=== PATIENT | female | born 1985 | race Caucasian/White ===

== ENCOUNTER 2018-03-08 08:35 | Emergency (ER) | payer MEDICAID, OTHER ==
[2018-03-08 09:04] LABS: #Lymphocytes 1.2 thou/uL (1.20-3.40); #Monocytes 0.2 thou/uL (0.11-0.59); #Neutrophils 2.9 thou/uL (1.40-6.50); %Basophils 1.1 % (0.0-1.0); %Lymphocytes 27.3 % (21.0-51.0); %Monocytes 3.7 % (0.0-10.0); Hemoglobin 14.4 g/dL (12.0-16.0); Mean Corpuscular HGB CONC 34.5 g/dL (32.0-36.0); Mean Corpuscular Hemoglobin 32.1 pg (27.0-31.0); Mean Platelet Volume 7.5 fL (7.4-10.4); Platelet Count 219 thou/uL (130-400); RBC Distribution Width 11.1 % (11.5-14.5); Red Blood Cell (RBC) Count 4.49 mill/uL (4.20-5.40); White Blood Cell (WBC) Count 4.4 thou/uL (4.8-10.8)
[2018-03-08 09:13] LABS: BHCG - Serum POSITIVE (NEGATIVE); Pregs Control Background? CLEAR/WHITE (CLR/WHITE); Pregs Control Bar Appear? YES (CONTROL BAR)
[2018-03-08 09:29] LABS: ALT (SGPT) 10 U/L (8-55); AST (SGOT) 15 U/L (5-34); Albumin 3.9 g/dL (3.5-5.0); Alkaline Phosphatase 48 U/L (40-150); Anion Gap 12 mmol/L (10-20); BUN (Urea Nitrogen) 7 mg/dL (7.0-18.7); Bilirubin, Total 0.7 mg/dL (0.2-1.2); Calc. Creatinine Clearance 0 mL/min (70-130); Calcium 8.9 mg/dL (7.8-10.44); Carbon Dioxide 21 mmol/L (22-29); Chloride 107 mmol/L (98-107); Estimated GFR-MDRD 78; Globulin 2.9 g/dL (2.4-3.5); Glucose 94 mg/dL (70-105); Potassium 3.8 mmol/L (3.5-5.1); Protein, Total 6.8 g/dL (6.0-8.3); Sodium 136 mmol/L (136-145)
[2018-03-08 10:24] LABS: Bilirubin Negative (Negative); Blood, Urine Negative (Negative); Clarity CLEAR (Clear); Glucose, Urine (Dipstick) Negative (Negative); Leukocyte Negative (Negative); Nitrite Negative (Negative); Protein, Urine (Dipstick) Negative (Neg-Trace); Specific Gravity, Urine 1.014 (1.002-1.036); Urobilinogen 0.2 mg/dL (0.2-1.0)
--- NOTE | 2018-03-08 10:55 | ULT ---
PELVIC ULTRASOUND: HISTORY: Early with spotting. Multiple miscarriages. FINDINGS: Real-time imaging of the pelvis was obtained transabdominally. This shows an intrauterine gestationa l sac and pole. The crown to rump length measurements are 1.4 cm corresponding to 7 weeks 5 da ys. Gestational sac measurements 2.6 cm corresponding to 7 weeks 4 days. heart rate is 158 b. p.m. A small follicle is seen involving the left adnexa. The right ovary is somewhat more difficult to vi sualize but appears unremarkable. DOPPLER EVALUATION WITH SPECTRAL ANALYSIS: Normal flow is shown to the adnexa. IMPRESSION: Single viable intrauterine , measurements corresponding to a gestational age of 7 weeks 5 da ys, estimated date of delivery 10/20/2018. POS: [facility]
== END 2018-03-08 10:13 | disposition home or self-care (01) ==
LOC: ERS 08:35
DX: O20.9 Hemorrhage in early pregnancy, unspecified (principal); F41.9 Anxiety disorder, unspecified; F32.9 Major depressive disorder, single episode, unspecified; Z79.82 Long term (current) use of aspirin; Z79.899 Other long term (current) drug therapy
CPT/HCPCS: 76856; 80053; 81003; 84702; 84703; 85025; 86900; 86901; 93976

== ENCOUNTER 2018-10-02 17:53 | Inpatient (IN) | payer OTHER ==
[~2018-10-02 17:53] MED LIST: Acetaminophen 500 MG TAB PO PRN; Bupivacaine/Epinephrine 0.25% 30 ML VIAL ONE; Butorphanol Tartrate 1 MG/ML VIAL SLOW IVP PRN; Docusate 100 MG CAP PO PRN; Meperidine HCl/PF 25 MG/ML VIAL IM/IV PRN; Ondansetron PF 4 MG/2 ML Vial IVP PRN; Promethazine HCl 25 MG/ML VIAL IM PRN; Zolpidem Tartrate 5 MG TAB PO PRN
[2018-10-02] MEDS ORDERED: Acetaminophen/Codeine 30-300mg Tablet PO PRN ×2 (18:15)
[2018-10-02] MEDS ORDERED: Carboprost 250 MCG/ML AMP IM PRN (18:15)
[2018-10-02] MEDS ORDERED: Lidocaine 1% (PF) 30 ML VIAL SC PRN (18:15)
[2018-10-02] MEDS ORDERED: Methylergonovine 0.2 MG/ML VIAL IM PRN (18:30)
[2018-10-02] MEDS ORDERED: Penicillin G Potassium 5 MILL.UNITS in Sodium Chloride 0.9% 100 ML IVPB SCH (18:30)
[2018-10-02] MEDS ORDERED: Misoprostol 200 MCG TAB PR PRN (18:30)
[2018-10-02] MEDS ORDERED: Ibuprofen 800 MG TAB PO PRN (18:30)
[2018-10-02] MEDS ORDERED: Diphenoxylate HCl/Atropine Tablet PO PRN (18:30)
[2018-10-02] MEDS: Lactated Ringer's 1,000 ML IV SCH (18:35)
[2018-10-02] MEDS: Misoprostol 100 MCG TAB VAG SCH (18:36)
[2018-10-02 18:52] LABS: Hemoglobin 11.5 g/dL (12.0-16.0); Mean Corpuscular HGB CONC 32.4 g/dL (32.0-36.0); Mean Corpuscular Hemoglobin 31.6 pg (27.0-31.0); Mean Corpuscular Volume 97.6 fL (78.0-98.0); Mean Platelet Volume 8.3 fL (7.4-10.4); Platelet Count 214 thou/uL (130-400); RBC Distribution Width 11.8 % (11.5-14.5); Red Blood Cell (RBC) Count 3.64 mill/uL (4.20-5.40); White Blood Cell (WBC) Count 8.6 thou/uL (4.8-10.8)
[2018-10-02] MEDS ORDERED: NS / Oxytocin 40 units/1000ml 1,000 ML IV PRN (19:00)
[2018-10-02 19:30] LABS: HBSAg Index 0.27 S/CO (0-0.99); Hep B Surf Ag Non-Reactive S/CO (NonReactive)
[2018-10-02 19:31] LABS: Syphilis Antibody Nonreactive (Nonreactive); Syphilis Antibody Index 0.04 S/CO (<1.00 Non-Reactive)
[2018-10-02] MEDS ORDERED: Fentanyl 4 mcg/Bup 0.1% Cadd 100 ML ONE (20:24)
[2018-10-02] MEDS ORDERED: Penicillin G 2.5 MILL.units 2.5 MILL.UNITS in Premix Bag 1 BAG IVPB SCH (22:00)
[2018-10-03] MEDS ORDERED: Penicillin G Potassium 5 MILL.UNITS VIAL ONE (00:55)
[2018-10-03] MEDS ORDERED: Fentanyl 4 mcg/Bup 0.1% Cadd 100 ML ONE ×2 (03:40→11:04)
[2018-10-03] MEDS ORDERED: Penicillin G 2.5 MILL.units 50 ML ONE ×2 (03:41→03:42)
[2018-10-03] MEDS ORDERED: NS w/ Oxytocin 10 units 500 ML ONE (04:14)
[2018-10-03] MEDS ORDERED: NS w/ Oxytocin 10 units 500 ML IV SCH (05:00)
[2018-10-03] MEDS ORDERED: hydrALAZINE 20 MG/ML VIAL SLOW IVP PRN (13:03)
[2018-10-03] MEDS ORDERED: Lanolin Ointment 7 GM TUBE TOP PRN (13:03)
[2018-10-03] MEDS ORDERED: Zolpidem Tartrate 5 MG TAB PO PRN (13:03)
[2018-10-03] MEDS ORDERED: diphenhydrAMINE 25 MG CAP PO PRN (13:03)
[2018-10-03] MEDS ORDERED: Misoprostol 200 MCG TAB VAG PRN (13:03)
[2018-10-03] MEDS ORDERED: Milk Of Magnesia 30 ML UDCUP PO PRN (13:03)
[2018-10-03] MEDS ORDERED: Ondansetron PF 4 MG/2 ML Vial IVP PRN (13:03)
[2018-10-03] MEDS ORDERED: Benzocaine-Menthol 82.5 ML CAN TOP PRN (13:03)
[2018-10-03] MEDS ORDERED: Bisacodyl 10 MG SUPP PR PRN (13:03)
[2018-10-03] MEDS ORDERED: Adacel (T-DAP) 0.5 ML SYRINGE IM ONE (13:03)
[2018-10-03] MEDS ORDERED: Preparation H Ointment 28 GM TUBE PR PRN (13:03)
[2018-10-03] MEDS ORDERED: Acetaminophen/Codeine 30-300mg Tablet PO PRN ×2 (13:03)
[2018-10-03] MEDS ORDERED: NS / Oxytocin 40 units/1000ml 1,000 ML IV SCH (13:15)
[2018-10-03] MEDS: Ibuprofen 800 MG TAB PO SCH ×2 (16:38→21:51)
[2018-10-03] MEDS: Misoprostol 100 MCG TAB VAG SCH ×3 (16:45→16:47)
[2018-10-03] MEDS: Lactated Ringer's 1,000 ML IV SCH (16:46)
[2018-10-03] MEDS: Ferrous Sulfate 325 MG TAB PO SCH (16:48)
[2018-10-03] MEDS: Docusate Calcium (SURFAK) 240 MG CAP PO SCH (21:51)
[2018-10-04] MEDS: Ibuprofen 800 MG TAB PO SCH ×2 (06:34→13:29)
[2018-10-04] MEDS: Docusate Calcium (SURFAK) 240 MG CAP PO SCH (09:19)
[2018-10-04] MEDS: Ferrous Sulfate 325 MG TAB PO SCH (09:24)
[2018-10-04 12:06] VITALS: BP 105/61; TEMP 98.5
== END 2018-10-04 15:58 | disposition home or self-care (01) | DRG 806 ==
LOC: L&D 17:53 → 3SE 10-03 16:20
PROVIDERS: ADMIT Obstetrics & Gynecology; ATTEND Obstetrics & Gynecology
PROC: 10907ZC Drainage of Amniotic Fluid, Therapeutic from Products of Conception, Via Natural or Artificial Opening (ICD-10-PCS; principal; 2018-10-03)
PROC: 10E0XZZ Delivery of Products of Conception, External Approach (ICD-10-PCS; 2018-10-03)
PROC: 3E0P7VZ Introduction of Hormone into Female Reproductive, Via Natural or Artificial Opening (ICD-10-PCS; 2018-10-03)
PROC: 3E033VJ Introduction of Other Hormone into Peripheral Vein, Percutaneous Approach (ICD-10-PCS; 2018-10-03)
DX: O99.12 Other diseases of the blood and blood-forming organs and certain disorders involving the immune mechanism complicating childbirth (principal); D68.59 Other primary thrombophilia; Z37.0 Single live birth; D68.2 Hereditary deficiency of other clotting factors; O99.824 Streptococcus B carrier state complicating childbirth; Z3A.37 37 weeks gestation of pregnancy
CPT/HCPCS: 36415; 51702; 85027; 86780; 86850; 86900; 86901; 87340; J2540; J2590